=== PATIENT | male | born 2000 | race Caucasian/White ===

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

== ENCOUNTER 2021-01-15 15:55 | Emergency (ER) | payer OTHER ==
[~2021-01-15] VITALS: Ht 172.7 cm; Wt 64.5 kg
[~2021-01-15 15:55] MED LIST changes: +CARA1TAB6 PO; +OMEP40CA4 PO; +ONDA4TAB6 PO
--- OUTSIDE RECORDS SUMMARY | 2021-01-15 16:39 | CCD ---
Author Author [facility] Address Unknown Phone Unavailable Support Name Relationship Address Phone [facility] Next Of Kin [address] [place] [address] Unavailable Re-disclosure Warning The records that you are about to access may contain information from federally-assisted alcohol or drug abuse programs. If such information is present, then the following federally mandated warning applies: This information has been disclosed to you from records protected by federal confidentiality rules (42 CFR part 2). The federal rules prohibit you from making any further disclosure of this information unless further disclosure is expressly permitted by the written consent of the person to whom it pertains or as otherwise permitted by 42 CFR part 2. A general authorization for the release of medical or other information is NOT sufficient for this purpose. The Federal rules restrict any use of the information to criminally investigate or prosecute any alcohol or drug abuse patient.The records that you are about to access may contain highly sensitive health information, the redisclosure of which is protected by Article 27-F of the [facility] Public Health law. If you continue you may have access to information: Regarding HIV / AIDS; Provided by facilities licensed or operated by the [facility] Office of Mental Health; or Provided by the [facility] Office for People With Developmental Disabilities. If such information is present, then the following [facility] mandated warning applies: This information has been disclosed to you from confidential records which are protected by state law. State law prohibits you from making any further disclosure of this information without the specific written consent of the person to whom it pertains, or as otherwise permitted by law. Any unauthorized further disclosure in violation of state law may result in a fine or usp sentence or both. A general authorization for the release of medical or other information is NOT sufficient authorization for further disc losure. Immunizations Vaccine Date Status Description Data Source(s) COVID-19 VACCINE Manuel 07/24/2020 12:00:00 AM EDT completed [facility] Vaccine Series Complete: YESThis Data wa s Submitted to [facility] Via [employer]. Medications Medication Brand Name Start Date Product Form Dose Route Admi nistrative Instructions Pharmacy Instructions Status Indications Reaction Description Data Source(s) 60 mcg (15 mcg x 4)/0.5 mL 12/12/2020 12:00:00 AM EDT syring e 0 INJECT INTRAMUSCULARLY BY RP INJECT INTRAMUSCULARLY BY [facility] SOLD: 12/12/2020 [facility] Insurance Providers Payer name Policy type / Coverage type Policy ID Covered republican ID Covered republican's relationship to tellez Policy Tellez Plan Information [facility] ACTIVE DUTY [id number] Problems, Conditions, and Diagnoses No Information Surgeries/Procedures No Information Results No Information Social History No Information
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
[2021-01-15] MEDS ORDERED: IBUPROFEN 800 MG TAB PO ONE (20:15)
--- OUTSIDE RECORDS SUMMARY | 2021-01-15 20:31 | CCD ---
Author Author [facility] Address Unknown Phone Unavailable Support Name Relationship Address Phone [facility] Next Of Kin [address] [place] [address] Unavailable Re-disclosure Warning The records that you [...] is protected by Article 27-F of the [facility] Public Health law. If you continue you may have access to information: Regarding HIV / AIDS; Provided by facilities licensed or operated by the [facility] Office of Mental Health; or Provided by the [facility] Office for People With Developmental Disabilities. If such information is present, then the following [facility] mandated warning applies: This information has been [...] law may result in a fine or fdc sentence or both. A general authorization for the release of medical or other information is NOT sufficient authorization for further disc losure. Immunizations Vaccine Date Status Description Data Source(s) COVID-19 VACCINE Manuel 07/24/2020 12:00:00 AM EDT completed [facility] Vaccine Series Complete: YESThis Data wa s Submitted to [facility] Via [employer]. Medications Medication Brand Name Start Date Product Form Dose Route Admi nistrative Instructions Pharmacy Instructions Status Indications Reaction Description Data Source(s) 60 mcg (15 mcg x 4)/0.5 mL 12/12/2020 12:00:00 AM EDT syring e 0 INJECT INTRAMUSCULARLY BY RP INJECT INTRAMUSCULARLY BY [facility] SOLD: 12/12/2020 [facility] Insurance Providers Payer name Policy type / Coverage type Policy ID Covered constitution party ID Covered constitution party's relationship to tellez Policy Tellez Plan Information [facility] ACTIVE DUTY [id number] Problems, Conditions, and Diagnoses No Information Surgeries/Procedures No Information Results No Information Social History No Information
[2021-01-15 20:34] VITALS: BP 121/65
== END 2021-01-15 20:34 | disposition home or self-care (01) ==
LOC: M ED 15:55
DX: M25.552 Pain in left hip (principal); X50.0XXA Overexertion from strenuous movement or load, initial encounter; Y92.9 Unspecified place or not applicable; Y93.9 Activity, unspecified; Y99.1 Military activity

== ENCOUNTER 2021-01-21 10:54 | Emergency (ER) | payer OTHER ==
[~2021-01-21] VITALS: Ht 172.7 cm; Wt 63.4 kg
--- OUTSIDE RECORDS SUMMARY | 2021-01-21 11:06 | CCD ---
Author Author [facility] Address Unknown Phone Unavailable Support Name Relationship Address Phone [facility] Next Of Kin [address] [place] [address] Unavailable Re-disclosure Warning The records that you [...] is protected by Article 27-F of the [facility] Public Health law. If you continue you may have access to information: Regarding HIV / AIDS; Provided by facilities licensed or operated by the [facility] Office of Mental Health; or Provided by the [facility] Office for People With Developmental Disabilities. If such information is present, then the following [facility] mandated warning applies: This information has been [...] law may result in a fine or alf sentence or both. A general authorization for the release of medical or other information is NOT sufficient authorization for further disc losure. Immunizations Vaccine Date Status Description Data Source(s) COVID-19 VACCINE Manuel 07/24/2020 12:00:00 AM EDT completed [facility] Vaccine Series Complete: YESThis Data wa s Submitted to [facility] Via [employer]. Medications Medication Brand Name Start Date Product Form Dose Route Admi nistrative Instructions Pharmacy Instructions Status Indications Reaction Description Data Source(s) 60 mcg (15 mcg x 4)/0.5 mL 12/12/2020 12:00:00 AM EDT syring e 0 INJECT INTRAMUSCULARLY BY RP INJECT INTRAMUSCULARLY BY [facility] SOLD: 12/12/2020 [facility] Insurance Providers Payer name Policy type / Coverage type Policy ID Covered green party ID Covered green party's relationship to tellez Policy Tellez Plan Information [facility] ACTIVE DUTY [id number] Problems, Conditions, and Diagnoses No Information Surgeries/Procedures No Information Results No Information Social History No Information
--- OUTSIDE RECORDS SUMMARY | 2021-01-21 11:51 | CCD ---
Author Author [facility] Address Unknown Phone Unavailable Support Name Relationship Address Phone [facility] Next Of Kin [address] [place] [address] Unavailable Re-disclosure Warning The records that you [...] is protected by Article 27-F of the [facility] Public Health law. If you continue you may have access to information: Regarding HIV / AIDS; Provided by facilities licensed or operated by the [facility] Office of Mental Health; or Provided by the [facility] Office for People With Developmental Disabilities. If such information is present, then the following [facility] mandated warning applies: This information [...] law may result in a fine or retirement sentence or both. A general authorization for the release of medical or other information is NOT sufficient authorization for further disc losure. Immunizations Vaccine Date Status Description Data Source(s) COVID-19 VACCINE Manuel 07/24/2020 12:00:00 AM EDT completed [facility] Vaccine Series Complete: YESThis Data wa s Submitted to [facility] Via [employer]. Medications Medication Brand Name Start Date Product Form Dose Route Admi nistrative Instructions Pharmacy Instructions Status Indications Reaction Description Data Source(s) 60 mcg (15 mcg x 4)/0.5 mL 12/12/2020 12:00:00 AM EDT syring e 0 INJECT INTRAMUSCULARLY BY RP INJECT INTRAMUSCULARLY BY [facility] SOLD: 12/12/2020 [facility] Insurance Providers Payer name Policy type / Coverage type Policy ID Covered green party ID Covered green party's relationship to tellez Policy Tellez Plan Information [facility] ACTIVE DUTY [id number] Problems, Conditions, and Diagnoses No Information Surgeries/Procedures No Information Results No Information Social History No Information
[2021-01-21 14:54] LABS: BASO % 0.2 % (0.0-1.0); EOS # 0.1 10^3/uL (0.0-0.5); EOS % 0.9 % (0.0-3.0); HEMATOCRIT 42.2 % (42.0-52.0); HEMOGLOBIN 13.9 g/dl (13.5-17.5); LYMPH # 1.9 10^3/uL (1.5-5.0); LYMPH % 30.6 % (24.0-44.0); MEAN CORPUSCULAR HEMOGLOBIN 30.5 pg (27.0-33.0); MEAN CORPUSCULAR HGB CONC 32.9 g/dl (32.0-36.5); MEAN CORPUSCULAR VOLUME 92.5 fl (80.0-96.0); MONO # 0.4 10^3/uL (0.0-0.8); MONO % 6.1 % (2.0-8.0); NEUTROPHILS # 3.9 10^3/uL (1.5-8.5); NEUTROPHILS % 61.9 % (36.0-66.0); PLATELET COUNT, AUTOMATED 197 10^3/uL (150-450); RED BLOOD COUNT 4.56 10^6/uL (4.30-6.10); WHITE BLOOD COUNT 6.4 10^3/uL (4.0-10.0)
[2021-01-21 15:13] LABS: BLOOD UREA NITROGEN 14 MG/DL (7-18); CALCIUM LEVEL 9.2 MG/DL (8.5-10.1); CARBON DIOXIDE LEVEL 26 MEQ/L (21-32); CHLORIDE LEVEL 106 MEQ/L (98-107); CREATININE FOR GFR 1.13 MG/DL (0.70-1.30); GLUCOSE, FASTING 88 MG/DL (70-100); POTASSIUM SERUM 4.2 MEQ/L (3.5-5.1); SODIUM LEVEL 139 MEQ/L (136-145)
--- NOTE | 2021-01-21 17:19 | REPVR ---
PROCEDURE INFORMATION: Exam: MR Lumbar Spine Without Contrast Exam date and time: 01/21/2021 4:06 PM Age: 20 years old Clinical indication: Other: Lle parasthesias; Additional info: Lle parasthesias and L hip pain TECHNIQUE: Imaging protocol: Multiplanar magnetic resonance images of the lumbar spine without intravenous contrast. COMPARISON: CT ABD/PEL W/IV CONTRAST ONLY 11/19/2020 1:02 PM FINDINGS: Vertebrae: No acute compression fracture is seen. Bone marrow signal is within normal limits. Spinal cord: The conus medullaris terminates at the L1 level. There is no evidence of arachnoiditis or cauda equina compression. L1-L2: No significant disc disease. No significant spinal stenosis or neural foraminal narrowing. L2-L3: No significant disc disease. No significant spinal stenosis or neural foraminal narrowing. L3-L4: There is minimal diffuse circumferential disc bulging and facet arthropathy. There is no significant spinal canal or neural foraminal stenosis. L4-L5: There is minimal diffuse circumferential disc bulging and facet arthropathy. There is no significant spinal canal or neural foraminal stenosis. L5-S1: No significant disc disease. No significant spinal stenosis or neural foraminal narrowing. Soft tissues: Unremarkable. IMPRESSION: No acute abnormality. Electronically signed by: Henri Oakes On 01/21/2021 17:18:59 PM
--- NOTE | 2021-01-21 19:24 | REPVR ---
PROCEDURE INFORMATION: Exam: MR Left Lower Extremity Joint Without Contrast; Hip Exam date and time: 01/21/2021 6:28 PM Age: 20 years old Clinical indication: Pain; Hip; Left; Additional info: L hip pain, reported parasthesias to lle, ortho request TECHNIQUE: Imaging protocol: MR of the Left lower extremity joint without contrast. Exam focused on the hip. COMPARISON: CR Hip, Ap,Lat 01/15/2021 5:55 PM FINDINGS: The hip joint space is preserved. The articular cartilage is intact. There is no evidence of acute fracture or dislocation. Bone marrow signal is normal. Alignment is anatomic. The visualized muscles and tendons about the hip are normal in appearance. The ligamentum teres and transverse acetabular ligament are intact. There is no significant hip joint effusion. Evaluation of the acetabular labrum is suboptimal without intra-articular contrast. No obvious labral tear is identified. IMPRESSION: Unremarkable examination. Electronically signed by: José Salazar On 01/21/2021 19:23:48 PM
[2021-01-21] MEDS ORDERED: BIOF4GEL4 TOP (19:27)
[2021-01-21] MEDS ORDERED: CAPS0.022 TOP (19:27)
[2021-01-21 19:34] LABS: C REACTIVE PROTEIN QUANTITATIV < 0.30 MG/DL (0.00-0.30); FREE T4 1.28 NG/DL (0.78-1.33)
[2021-01-21 19:41] VITALS: BP 120/68
[2021-01-21 20:54] LABS: ERYTHROCYTE SEDIMENTATION RATE 2 mm/hr (0-15)
== END 2021-01-21 19:41 | disposition home or self-care (01) ==
LOC: M ED 10:54
DX: M25.552 Pain in left hip (principal); R20.2 Paresthesia of skin

== ENCOUNTER 2021-01-25 08:45 | Emergency (ER) | payer OTHER ==
[~2021-01-25] VITALS: Ht 172.7 cm; Wt 62.3 kg
[~2021-01-25 08:45] MED LIST changes: +BIOF4GEL4 TOP; +CAPS0.022 TOP
--- OUTSIDE RECORDS SUMMARY | 2021-01-25 08:53 | CCD ---
Author Author [facility] Organization [facility] Address Unknown Phone Unavailable Support Name Relationship Address Phone [address] Next Of Kin [address] [place] [address] [facility] Next Of Kin [address] [place] [address] Unavailable [address] [place] [address] Unavailable Re-disclosure Warning The records that you [...] law may result in a fine or mcfp sentence or both. A general authorization for the release of medical or other information is NOT sufficient authorization for further disc losure. Immunizations Vaccine Date Status Description Data Source(s) COVID-19 VACCINE Manuel 07/24/2020 12:00:00 AM EDT completed [facility]IS Vaccine Series Complete: YESThis Data wa s Submitted to [facility] Via [employer]. Medications Medication Brand Name Start Date Product Form Dose Route Admi nistrative Instructions Pharmacy Instructions Status Indications Reaction Description Data Source(s) 60 mcg (15 mcg x 4)/0.5 mL 12/12/2020 12:00:00 AM EDT syring e 0 INJECT INTRAMUSCULARLY BY [facility] INJECT INTRAMUSCULARLY BY [facility] SOLD: 12/12/2020 [facility] Insurance Providers Payer name Policy type / Coverage type Policy ID Covered alliance party ID Covered alliance party's relationship to varma Policy Varma Plan Information [facility] ACTIVE DUTY [id number] Problems, Conditions, and Diagnoses No Information Surgeries/Procedures No Information Results No Information Social History No Information
--- OUTSIDE RECORDS SUMMARY | 2021-01-25 12:21 | CCD ---
Author Author [facility] Organization [facility] Address Unknown Phone Unavailable Support Name Relationship Address Phone [address] Next Of Kin [address] [place] [address] [facility] Next Of Kin [address] [place] [address] Unavailable LE[address] [facility] [place] [address] Unavailable Re-disclosure Warning The records that you [...] is protected by Article 27-F of the [facility] Public Health law. If you continue you may have access to information: Regarding HIV / AIDS; Provided by facilities licensed or operated by the [facility] Office of Mental Health; or Provided by the [facility] Office for People With Developmental Disabilities. If such information is present, then the following [facility] mandated warning applies: This information [...] law may result in a fine or senior care sentence or both. A general authorization for the release of medical or other information is NOT sufficient authorization for further disc losure. Immunizations Vaccine Date Status Description Data Source(s) COVID-19 VACCINE Manuel 07/24/2020 12:00:00 AM EDT completed [facility] Vaccine Series Complete: YESThis Data wa s Submitted to [facility] Via [employer]. Medications Medication Brand Name Start Date Product Form Dose Route Admi nistrative Instructions Pharmacy Instructions Status Indications Reaction Description Data Source(s) 60 mcg (15 mcg x 4)/0.5 mL 12/12/2020 12:00:00 AM EDT syring e 0 INJECT INTRAMUSCULARLY BY [facility] INJECT INTRAMUSCULARLY BY [facility] SOLD: 12/12/2020 [facility] Insurance Providers Payer name Policy type / Coverage type Policy ID Covered libertarian ID Covered libertarian's relationship to varma Policy Varma Plan Information [facility] ACTIVE DUTY [id number] Problems, Conditions, and Diagnoses No Information Surgeries/Procedures No Information Results No Information Social History No Information
[2021-01-25] MEDS ORDERED: diphenhydrAMINE 25MG CAP PO ONE (12:35)
[2021-01-25] MEDS ORDERED: IBUPROFEN 600MG TAB PO ONE (12:35)
[2021-01-25] MEDS ORDERED: ONDANSETRON 4 MG ORAL DISINTEGRATING TAB PO ONE (12:35)
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
[2021-01-25] MEDS ORDERED: ONDA4TAB6 PO (13:04)
[2021-01-25 13:05] VITALS: BP 122/60
== END 2021-01-25 13:19 | disposition home or self-care (01) ==
LOC: M ED 08:45
DX: S06.0X0A Concussion without loss of consciousness, initial encounter (principal); S20.212A Contusion of left front wall of thorax, initial encounter; Y99.1 Military activity; Y92.9 Unspecified place or not applicable; Y93.9 Activity, unspecified; V43.52XA Car driver injured in collision with other type car in traffic accident, initial encounter
CPT/HCPCS: 70450; 71101; 99283; Q0162

== ENCOUNTER 2021-02-15 22:15 | Emergency (ER) | payer OTHER ==
[~2021-02-15] VITALS: Ht 172.7 cm; Wt 63.6 kg
[2021-02-15 22:59] VITALS: BP 111/69
[2021-02-15 23:10] LABS: HEMATOCRIT 41.7 % (42.0-52.0); HEMOGLOBIN 14.3 g/dl (13.5-17.5); MEAN CORPUSCULAR HEMOGLOBIN 30.8 pg (27.0-33.0); MEAN CORPUSCULAR HGB CONC 34.3 g/dl (32.0-36.5); MEAN CORPUSCULAR VOLUME 89.9 fl (80.0-96.0); PLATELET COUNT, AUTOMATED 221 10^3/uL (150-450); RED BLOOD COUNT 4.64 10^6/uL (4.30-6.10); WHITE BLOOD COUNT 11.2 10^3/uL (4.0-10.0)
[2021-02-15 23:43] LABS: RSV AMPLIFICATION NEGATIVE (NEGATIVE)
[2021-02-15 23:53] LABS: ACETAMINOPHEN LEVEL < 2.0 UG/ML (10.0-30.0); ALBUMIN 4.1 GM/DL (3.2-5.2); ALT/SGPT 21 U/L (12-78); BILIRUBIN,DIRECT 0.4 MG/DL (0.0-0.2); BILIRUBIN,TOTAL 1.8 MG/DL (0.2-1.0); BLOOD UREA NITROGEN 18 MG/DL (7-18); CALCIUM LEVEL 8.8 MG/DL (8.5-10.1); CARBON DIOXIDE LEVEL 28 MEQ/L (21-32); CHLORIDE LEVEL 106 MEQ/L (98-107); CREATININE FOR GFR 1.08 MG/DL (0.70-1.30); ETHYL ALCOHOL (ETHANOL) < 0.003 % (0.000-0.010); GLUCOSE, FASTING 92 MG/DL (70-100); POTASSIUM SERUM 3.7 MEQ/L (3.5-5.1); SALICYLATE LEVEL < 1.7 MG/DL (5.0-30.0); SODIUM LEVEL 140 MEQ/L (136-145); TOTAL PROTEIN 7.4 GM/DL (6.4-8.2)
== END 2021-02-16 03:14 | disposition home or self-care (01) ==
LOC: M ED 22:15
DX: F32.A Depression, unspecified (principal)

== ENCOUNTER 2022-04-01 20:19 | Emergency (ER) | payer OTHER ==
[~2022-04-01] VITALS: Ht 177.8 cm; Wt 57.7 kg
[2022-04-01] MEDS ORDERED: AMIT50TA PO (21:02)
[2022-04-01] MEDS ORDERED: HYDR-4570 PO (21:02)
[2022-04-02 01:14] VITALS: BP 109/51
== END 2022-04-02 01:15 | disposition home or self-care (01) ==
LOC: M ED 20:19 → EDBD 20:19 → M ED 04-02 01:15
DX: F32.A Depression, unspecified (principal); F17.200 Nicotine dependence, unspecified, uncomplicated; Z79.82 Long term (current) use of aspirin; Z79.899 Other long term (current) drug therapy